=== PATIENT | female | born 1955 | race Caucasian/White ===

== ENCOUNTER 2017-02-01 12:32 | Emergency (ER) | payer BC ==
--- NOTE | 2017-02-01 12:55 | Emergency Department Record ---
History of Present Illness - General Chief complaint: Extremity Problem Stated complaint: LUMP ON RT ELBOW Time Seen by Provider: 02/01/17 12:50 Source: Patient Mode of Arrival: Ambulatory Limitations: No limitations - History of Present Illness Initial comments: The patient is here due to noticing swelling to her R elbow today. She has been doing a lot more activity for the last 3 days such as washing windows and fishing. This AM she was fishing and she noticed the swelling. She denies any pain, direct trauma, fever, chills, or taking any blood thinners. MD Complaint: Extremity swelling Onset/Timin -: Days(s) Location: Right, Elbow History of Same: No Radiation: None Improves with: Nothing Worsens with: Nothing Associated Symptoms: Denies other symptoms - Related Data Home Medications Medication Instructions Recorded Confirmed Last Taken No Home Med [NO HOME MEDS] 02/01/17 02/01/17 Unknown Allergies Allergy/AdvReac Type Severity Reaction Status Date / Time No Known Drug Allergies Allergy Verified 02/01/17 12:41 Travel Screening - Travel/Exposure Within Last 30 Days Have you traveled within the last 30 days?: No - Travel/Exposure Within Last Year Have you traveled outside the [place] in the last year?: No - Additonal Travel Details Have you been exposed to anyone with a communicable illness?: No - Travel Symptoms Symptom Screening: None Review of Systems Constitutional: Denies: Chills, Fever Past Medical History - SOCIAL HISTORY Smoking Status: Never smoker Alcohol Use: Occassional Drug Use: None - RESPIRATORY Hx Respiratory Disorders: No - CARDIOVASCULAR Hx Cardio Disorders: No - NEURO Hx Neuro Disorders: No - GI Hx GI Disorders: No - Hx Genitourinary Disorders: No - ENDOCRINE Hx Endocrine Disorders: No - MUSCULOSKELETAL Hx Musculoskeletal Disorders: No - PSYCH Hx Psych Problems: No - HEMATOLOGY/ONCOLOGY Hx Hematology/Oncology Disorders: No Family Medical History Any Significant Family History?: Yes Hx Alcohol Use: Grandparents Hx Diabetes: Mother Hx Stroke: Grandparents Physical Exam - General General Appearance: Alert, Cooperative, No acute distress - Head Head exam: Atraumatic, Normocephalic, Normal inspection - Eye Eye exam: Normal appearance - Extremities Extremities exam: Full ROM (The R elbow has full ROM with no pain.), Other. negative: Normal inspection (There is a large boggy swollen area over the olecranon. There is no warmth or tenderness to palpation. There are no lesions or abrasions present.), Tenderness Course Vital Signs 02/01/17 12:42 Temperature 98.1 F Pulse Rate 63 Respiratory 18 Rate Blood Pressure 160/93 Pulse Ox 100 - Reevaluation(s) Reevaluation #1: Procedure note: The R elbow was prepped with sterile fashion with betadine and anesth. with 1 cc Lido 1%. A # 18 guage needle was used to aspirate the bursa and 1.5 cc's of blood was removed. There were no complications. 02/01/17 13:10 Reevaluation #2: I did discuss the case with Dr. Morillo and he agrees with the plan and will F/U with the patient next week. 02/01/17 13:42 Medical Decision Making - Data Complexity MDM Data: X-Ray Ordered and/or Reviewed - Radiology Data Radiology results: Report reviewed (R elbow: Olecranon bursitis, O/W neg.) Disposition Disposition: Discharge Clinical Impression: Olecranon bursitis, right elbow Disposition: Home, Self-Care Condition: (1) Good Instructions: Elbow Bursitis (ED) Additional Instructions: Please use ice on the elbow and keep the compression on for 5-7 days. Please see your PCP next week for recheck and return to the ER if worse. Forms: Patient Portal Access Time of Disposition: 13:46
--- NOTE | 2017-02-03 13:55 | RADIOLOGY REPORT ---
DATE: 02/01/2017. EXAM: RIGHT ELBOW. HISTORY: Swelling. TECHNIQUE: Four views of the right elbow were obtained. COMPARISON: None. ENCOUNTER: Initial. FINDINGS: Negative for acute fracture or dislocation. Prominent posterior soft tissue swelling with bony spur formation of the olecranon. No joint effusion. IMPRESSION: FINDINGS CONSISTENT WITH OLECRANON BURSITIS. JOB NUMBER: [id number] MTDD
== END 2017-02-01 13:54 | disposition home or self-care (01) ==
LOC: ER 12:32
DX: M70.31 Other bursitis of elbow, right elbow (principal)
CPT/HCPCS: 20605; 99283

== ENCOUNTER 2018-12-16 12:39 | Day surgery (SDC) | payer BC ==
[2018-12-16] MEDS ORDERED: PROPOFOL 10 MG/ML VIAL IV ONE (12:40)
[2018-12-16] MEDS ORDERED: LIDOCAINE 2% MDV (20MG/ML) 20ML VIAL IV ONE (12:40)
--- NOTE | 2018-12-17 11:30 | Operative Note ---
DATE OF SURGERY: 12/16/2018 OPERATION: COLONOSCOPY to the cecum. INDICATION: High-risk colon cancer screening in this patient with a family history of colon cancer in a first-degree relative. She presents today for an evaluation. She denies any current GI symptoms. ANESTHESIA: Intravenous sedation was administered by the department of anesthesiology and included Diprivan titrated to effect. PROCEDURE: Following informed consent from this alert individual including a discussion of the risks and benefits of the procedure and an opportunity for the patient to ask questions, the patient was in the left lateral decubitus position. A digital rectal examination was performed. No abnormalities were noted. Following this, the Olympus [id number] video colonoscope was inserted into the rectum without resistance. The rectal mucosa had a normal appearance with normal folds and distensibility. The colonoscope was advanced up through the bowel to the level of the cecum without much difficulty. Throughout the bowel the mucosa appeared normal, the folds were normal, and the bowel was fairly well distensible. The cecum was defined by noting the appendiceal orifice and ileocecal valve. From the base of the cecum, the colonoscope was then slowly withdrawn. The colon preparation was good. No abnormalities were detected upon withdrawal. Retroflexion in the rectum revealed small internal hemorrhoid. The endoscope was straightened and removed. The patient tolerated the procedure well and was returned to the recovery area in stable condition. IMPRESSION: 1. Small internal hemorrhoid. 2. Otherwise unremarkable colonoscopy to the cecum. RECOMMENDATIONS: The patient was advised to have recheck colonoscopy in 5 years' time or sooner should problems arise. Followup will be with Dr. Morillo as well. As always, thank you for allowing me to participate in the care of your patient. CC: DO VINOD Win
== END 2018-12-16 14:05 | disposition home or self-care (01) ==
LOC: HOP 12:39
PROVIDERS: ATTEND Internal Medicine Gastroenterology
DX: Z12.11 Encounter for screening for malignant neoplasm of colon (principal); Z80.0 Family history of malignant neoplasm of digestive organs
CPT/HCPCS: 00812; G0105